=== PATIENT | male | born 1940 | race Caucasian/White ===

== ENCOUNTER 2017-06-09 16:36 | Emergency (ER) | payer MEDICARE, BC ==
[2017-06-09 16:44] VITALS: BP 130/74
--- NOTE | 2017-06-09 16:55 | UC ---
Ear Complaint HPI - HPI Summary HPI Summary: plugged right ear x 1 day no ear pain , no ear discharge, + nasal congestion, pnd , hx of allergic rhinitis difficulty hearing form the right ear, similar condition one year go - History of Current Complaint Chief Complaint: UCEar Stated Complaint: RIGHT EAR PLUGGED Time Seen by Provider: 06/09/17 16:39 Hx Obtained From: Patient Onset/Duration: Sudden Onset, Lasting Days - 1, Still Present Severity Initially: Moderate Severity Currently: Moderate Aggravating Factors: Nothing Alleviating Factors: Nothing Associated Signs/Symptoms: Positive: Hearing Loss. Negative: Discharge, Foreign Body Sensation, Trauma to Ear, Swelling @, URI Symptoms - Allergies/Home Medications Allergies/Adverse Reactions: Allergies Allergy/AdvReac Type Severity Reaction Status Date / Time No Known Allergies Allergy Verified 06/09/17 16:44 Home Medications: Home Medications Aspirin EC Low Dose* [Ecotrin EC Low Dose 81 MG*] 81 mg PO DAILY 06/09/17 [ History Confirmed 06/09/17] Atorvastatin* [Lipitor*] 10 mg PO DAILY 06/09/17 [History Confirmed 06/09/17] Colesevelam(NF) [Welchol(NF)] 375 mg PO DAILY 06/09/17 [History Confirmed ] Dexlansoprazole (NF) [Dexilant (NF)] 60 mg PO DAILY 06/09/17 [History Confirmed 06/09/17] Febuxostat(NF) [Uloric(NF)] 80 mg PO DAILY 06/09/17 [History Confirmed 06/09/17] Folic Acid TAB* [Folvite TAB*] 1 mg PO DAILY 06/09/17 [History Confirmed ] Hydrochlorothiazide TAB* [Hydrodiuril TAB*] 25 mg PO DAILY 06/09/17 [History Confirmed 06/09/17] LevoCETirizine TAB (NF) [Xyzal TAB (NF)] 5 mg PO DAILY 06/09/17 [History Confirmed 06/09/17] Montelukast Sodium TAB* [Singulair TAB*] 10 mg PO DAILY 06/09/17 [History Confirmed 06/09/17] Nye-3 Fatty Acids [Fish Oil Maximum Strength] 1 cap PO BID 06/09/17 [History Confirmed 06/09/17] Ramipril CAP* [Altace CAP*] 10 mg PO DAILY 06/09/17 [History Confirmed 06/09/17] SitaGLIPtin (NF) [Januvia (NF)] 100 mg PO DAILY 06/09/17 [History Confirmed ] metFORMIN* [Glucophage 1000 MG TAB *] 1,000 mg PO BID 06/09/17 [History Confirmed 06/09/17] PMH/Surg Hx/FS Hx/Imm Hx Endocrine History: Diabetes Cardiovascular History: Hypertension Cancer History: Other - renal ca Other Cancer History: renal ca - Surgical History Surgical History: Yes Surgery Procedure, Year, and Place: right nephrectomy 1987. cataracts 1984. left knee total joint 2009. left foot hammer toe correction 2011. right foot hammer toe correction 2014 - Family History Known Family History: Positive: Diabetes - Social History Alcohol Use: None Substance Use Type: None Smoking Status (MU): Former Smoker When Did the Patient Quit Smoking/Using Tobacco: 1986 - Immunization History Most Recent Influenza Vaccination: no Review of Systems Constitutional: Negative Skin: Negative Eyes: Negative Respiratory: Negative Cardiovascular: Negative Gastrointestinal: Negative Is Patient Immunocompromised?: No All Other Systems Reviewed And Are Negative: Yes Physical Exam Triage Information Reviewed: Yes Appearance: Well-Appearing, No Pain Distress, Well-Nourished Vital Signs: Initial Vital Signs Temp 98.7 F 06/09/17 16:37 Pulse 88 06/09/17 16:37 Resp 16 06/09/17 16:37 BP 130/74 06/09/17 16:37 Pulse Ox 96 06/09/17 16:37 Vital Signs Reviewed: Yes Eyes: Positive: Conjunctiva Clear ENT: Positive: Normal ENT inspection, Hearing grossly normal, Other: - cerumen impaction right ear Neck: Positive: Supple, Nontender, No Lymphadenopathy Respiratory: Positive: Chest non-tender, Lungs clear, Normal breath sounds Cardiovascular: Positive: RRR, No Murmur, Pulses Normal Skin Exam: Normal Ear Complaint Course/Dx - Differential Dx/Diagnosis Provider Diagnoses: cerumen impaction right ear Discharge - Discharge Plan Condition: Stable Disposition: HOME Patient Education Materials: Cerumen Impaction (ED) Referrals: Cesario KEBEDE,Yogesh Clemente [Primary Care Provider] - If Needed Additional Instructions: use Flonase nasal spray daily for allergic rhinitis
== END 2017-06-09 17:10 | disposition home or self-care (01) ==
LOC: UCCORT 16:36
DX: H61.21 Impacted cerumen, right ear (principal); R09.81 Nasal congestion; J30.9 Allergic rhinitis, unspecified; E11.9 Type 2 diabetes mellitus without complications; Z79.84 Long term (current) use of oral hypoglycemic drugs; I10 Essential (primary) hypertension; Z79.82 Long term (current) use of aspirin; Z85.528 Personal history of other malignant neoplasm of kidney; Z90.5 Acquired absence of kidney; Z98.49 Cataract extraction status, unspecified eye; Z96.652 Presence of left artificial knee joint; Z87.891 Personal history of nicotine dependence
CPT/HCPCS: 99203; G0463